=== PATIENT | female | born 1980 | race Caucasian/White ===

== ENCOUNTER 2017-10-01 12:21 | Emergency (ER) | payer SELFPAY ==
[2017-10-01 12:22] VITALS: BP 130/76; PULSE 86; RESP 12; TEMP 97.5; O2SAT 97
--- NOTE | 2017-10-01 13:22 | PD ---
HPI Chief Complaint: Cold / Flu Symptoms Time Seen by Provider: 13:21 Travel History International Travel<30 days: No Contact w/Intl Traveler<30days: No Traveled to known affect area: No History of Present Illness HPI Pt is a 37-year-old female presenting to the emergency department for evaluation shortness breath, cough, wheezing. Patient states her symptoms started 2 weeks ago, she reports that her cough is productive. She reports a history of bronchitis, she also reports chest congestion. She denies any fever , chills, nausea, vomiting, chest pain. Patient denies any pain, there are no alleviating or exacerbating factors. She states that she did not trial any Sudafed because it makes her feel jittery. PFSH Past Medical History Medical History: Denies Significant Hx ?: Not LMP: 09/23/17 Social History Tobacco Use: Yes Allergies-Medications (Allergen,Severity, Reaction): Coded Allergies: No Known Allergies (Unverified , 10/01/17) Review of Systems Except as stated in HPI: all other systems reviewed are Neg General / Constitutional: No: Fever, Chills HENT: Positive: Congestion, No: Headaches, Lightheadedness Cardiovascular: No: Chest Pain or Discomfort Respiratory: Positive: Cough, Shortness of Breath, Wheezing, No: Sneezing, Orthopnea Gastrointestinal: No: Nausea, Vomiting, Abdominal Pain Musculoskeletal: No: Myalgias Neurologic: No: Weakness, Dizziness Physical Exam Narrative GENERAL: Well-appearing, well-developed, alert female. SKIN: Warm and dry. HEAD: Normocephalic. EYES: No scleral icterus. No injection or drainage. CARDIOVASCULAR: Regular rate RESPIRATORY: No accessory muscle use, no increased work of breathing MUSCULOSKELETAL: No cyanosis, or edema. Data Data Last Documented VS Vital Signs Date Time Temp Pulse Resp B/P (MAP) Pulse Ox O2 Delivery O2 Flow Rate FiO2 10/01/17 12:22 97.5 86 12 130/76 (94) 97 Orders MDM Medical Decision Making Medical Screen Exam Complete: Yes Emergency Medical Condition: Yes Interpretation(s) Vital Signs Date Time Temp Pulse Resp B/P (MAP) Pulse Ox O2 Delivery O2 Flow Rate FiO2 10/01/17 12:22 97.5 86 12 130/76 (94) 97 Differential Diagnosis Viral URI versus sinusitis versus bronchitis versus pneumonia versus other Narrative Course Patient presented with upper respiratory symptoms, her symptoms have been ongoing for several weeks. Patient's vital signs are stable, chest x-ray ordered while in triage. Patient is well-appearing, she is in no acute distress. Awaiting bed placement. Patient decided to leave [facility], she stated that she was going to a different facility to get an albuterol inhaler. Patient Anne Mcleod has decided to leave the hospital against medical advice. This patient has the capacity to refuse care and understands the risks of leaving, including permanent disability and/or , and has had an opportunity to ask questions about her condition. The patient has been informed that she may return for care at any time, and follow up has been arranged/ advised. Diagnosis Primary Impression: Left against medical advice Marifer Christensen Oct 01, 2017 13:22
== END 2017-10-01 13:20 | disposition left against medical advice (07) ==
LOC: NED 12:21
DX: R05 Cough (principal); Z72.0 Tobacco use
CPT/HCPCS: 99283

== ENCOUNTER 2017-11-29 17:23 | Emergency (ER) | payer MEDICAID ==
[~2017-11-29] VITALS: Ht 167.6 cm; Wt 68.0 kg
[2017-11-29 17:24] VITALS: BP 134/77; PULSE 88; RESP 14; TEMP 98.4; O2SAT 99
[2017-11-29] MEDS ORDERED: LEVO175T2 PO (17:35)
--- NOTE | 2017-11-29 18:23 | PD ---
HPI Chief Complaint: Medical Clearance Time Seen by Provider: 17:40 Travel History International Travel<30 days: No Contact w/Intl Traveler<30days: No Traveled to known affect area: No History of Present Illness HPI 37-year-old female presents to the ED for evaluation of multiple medical complaints. Patient states that she had a injury to her ankle a few months ago in that the pain and swelling has not resolved. She has been ambulatory on the ankle but states it is painful. She denies weakness or giving way. She is not followed up with the orthopedist. She also states that she recently had a EGD and is experiencing a sore throat since that time. She denies fever, chills, sinus congestion, rhinorrhea, ear pain, cough. She also states that she had lab work done before her EGD that indicated that her thyroid level was low despite compliance with levothyroxine. She denies dizziness, lethargy, palpitations, anxiety, lack of appetite, constipation. She states that she currently does not have a primary care provider and this is why she has come to the emergency room today. PFSH Past Medical History ?: Unknown LMP: OCT 2017 Social History Alcohol Use: Yes Tobacco Use: Yes Allergies-Medications (Allergen,Severity, Reaction): Coded Allergies: No Known Allergies (Unverified , 10/01/17) Reported Meds & Prescriptions Reported Meds & Active Scripts Active Reported Levothyroxine (Levothyroxine Sodium) 175 Mcg Tab 175 Mcg PO DAILY Review of Systems Except as stated in HPI: all other systems reviewed are Neg Physical Exam Narrative GENERAL: Well-nourished, well-developed white female in no acute distress. SKIN: Warm and dry. HEAD: Normocephalic. Atraumatic. EYES: No scleral icterus. No injection or drainage. PERRLA. EOMI. ENT: Pearly cuevas tympanic membranes bilaterally. Nasal mucosa is moist. Oropharynx very mild posterior erythema, no edema or exudate. Uvula midline. Airway patent. NECK: Supple, trachea midline. No JVD or lymphadenopathy. No goiter. CARDIOVASCULAR: Regular rate and rhythm without murmurs, gallops, or rubs. RESPIRATORY: Breath sounds clear and equal bilaterally. No accessory muscle use. GASTROINTESTINAL: Abdomen soft, non-tender, nondistended. + Bowel sounds MUSCULOSKELETAL: No cyanosis. Ambulates with a normal gait. FOCUSED RIGHT LOWER EXTREMITY EXAM: 2+ radial pulse. Edema of the lateral malleolus of the right ankle. Tenderness to palpation of the medial malleolus of the right ankle. Patient is able to wiggle her toes and flex and extend the ankle. Sensation intact to light touch distally. Cap refill less than 2 seconds. BACK: Nontender without obvious deformity. No CVA tenderness. Data Data Last Documented VS Vital Signs Date Time Temp Pulse Resp B/P (MAP) Pulse Ox O2 Delivery O2 Flow Rate FiO2 11/29/17 17:41 18 11/29/17 17:24 98.4 88 134/77 (96) 99 Orders Orders Ankle, Complete ([id number]) (11/29/17 17:52) Ed Discharge Order (11/29/17 18:38) [facility] Medical Decision Making Medical Screen Exam Complete: Yes Emergency Medical Condition: Yes Differential Diagnosis chronic ankle pain versus pharyngitis versus hypothyroid versus other Narrative Course 37-year-old female presents to the ED for evaluation of multiple medical complaints. She complains of right ankle pain secondary to sprain a few months ago. She states that she has a sore throat 2 weeks. Onset after an EGD. She states that before the EGD or thyroid level was low and she wants to have an ultrasound done. Vitals reviewed. On exam patient has mild posterior pharyngeal erythema. ENT exam otherwise unremarkable. No goiter. Chest some edema and tenderness of the right ankle. X-ray of the ankle reveals no acute bony injury. I discussed the patient's requests and recommended that she follow up with the [facility] for evaluation of her chronic problems. I instructed her to treat the ankle pain with RICE therapy. Patient states she is currently in between PCPs and was relieved to have a clinic to follow-up. She indicated understanding of instructions. She is stable and discharged home. Diagnosis Primary Impression: Pharyngitis Qualified Codes: J02.9 - Acute pharyngitis, unspecified Additional Impression: Chronic pain of right ankle Referrals: [facility] Patient Instructions: Ankle Sprain (ED), Ankle Sprain Exercises (GEN), General Instructions Additional Instructions: Rest, ice, elevate the extremity. Apply ice no longer than 10-15 minutes per hour a few times a day. 600 mg ibuprofen up to 3 times a day as needed for pain. Return to normal, gentle activity as tolerated. No running, jumping activities for the next few weeks. Follow up with orthopedist and the [facility] as discussed. Return to the ED for any urgent or emergent medical condition. Disposition: 01 DISCHARGE HOME Condition: Stable Fang Nash Nov 29, 2017 18:23
--- NOTE | 2017-11-29 18:38 | RADRPT ---
EXAM DATE/TIME: 11/29/2017 18:17 [facility] COMPARISON: No previous studies available for comparison. INDICATIONS : Right Ankle Pain twisted it two months ago MEDICAL HISTORY : None. SURGICAL HISTORY : None. ENCOUNTER: Initial ACUITY: 2 months PAIN SCORE: 8/10 LOCATION: Right ankle FINDINGS: Three view exam was performed of the right ankle. The bony structures are in normal alignment. No e vidence of fracture, dislocation, or soft tissue swelling. The ankle mortise is intact. No radiopaq ue foreign bodies are seen. Bony mineralization is normal. CONCLUSION: 1. No acute findings. José Rainey MD on November 29, 2017 at 18:35 Board Certified Radiologist. This report was verified electronically.
== END 2017-11-29 19:13 | disposition home or self-care (01) ==
LOC: NEPC 17:23
DX: J02.9 Acute pharyngitis, unspecified (principal); G89.29 Other chronic pain; M25.571 Pain in right ankle and joints of right foot; Z72.0 Tobacco use
CPT/HCPCS: 73610; 99283